=== PATIENT | female | born 1960 | race Caucasian/White ===

== ENCOUNTER 2016-07-01 18:24 | Emergency (ER) | payer BC ==
[~2016-07-01] VITALS: Ht 154.9 cm; Wt 46.9 kg
[~2016-07-01 18:24] MED LIST: ESTR1TAB15 PO; FEXO1TAB25 PO; LIPA1CAP22 PO; LORA2TAB99 PO; MEDR2.5T30 PO; PANT40TA5 PO; PRED10TA PO; SUCR1TAB PO; SUCR1TAB26 PO
[2016-07-01] MEDS ORDERED: SODIUM CHLORIDE 0.9% 1,000ML IVBOLUS ONE (19:00)
[2016-07-01] MEDS ORDERED: SODIUM CHLORIDE FLUSH 10ML SYR IVF ONE (19:00)
[2016-07-01 19:19] LABS: ASPARTATE AMINO TRANSFERASE 9 U/L (15-37); BLOOD UREA NITROGEN 8 mg/dL (7-18)
[2016-07-01] MEDS ORDERED: PRED-402 PO (19:59)
[2016-07-01] MEDS ORDERED: CIPR500T3 PO (19:59)
[2016-07-01] MEDS ORDERED: ONDA4TAB13 SL (19:59)
[2016-07-01] MEDS ORDERED: METOCLOPRAMIDE 5 MG/ML, 2ML IVPush ONE (20:00)
[2016-07-01] MEDS ORDERED: MAALOX/HYOSCYAMINE/LIDOCAINE 45 ML BOTTLE PO ONE (20:00)
[2016-07-01] MEDS ORDERED: METOCLOPRAMIDE 5 MG/ML, 2ML ONE (20:10)
[2016-07-01] MEDS ORDERED: MAALOX/HYOSCYAMINE/LIDOCAINE 45 ML BOTTLE ONE (20:10)
[2016-07-01 20:47] VITALS: BP 123/59
== END 2016-07-01 21:32 | disposition home or self-care (01) ==
LOC: ED 21:26
DX: K31.84 Gastroparesis (principal); Z86.73 Personal history of transient ischemic attack (TIA), and cerebral infarction without residual deficits
CPT/HCPCS: 36415; 74022; 80053; 81003; 83690; 85025; 96361; 96374; 99285; J2765; J7030